=== PATIENT | male | born 1970 | race Caucasian/White ===

== ENCOUNTER 2017-12-14 12:38 | Emergency (ER) | payer BC, OTHER ==
[2017-12-14 12:47] VITALS: RESP 18
--- NOTE | 2017-12-14 14:20 | ED ---
Recheck HPI - General Chief Complaint: Recheck/Abnormal Lab/Rx Stated Complaint: High Blood Pressure Time Seen by Provider: 12/14/17 14:02 Source: patient Mode of arrival: ambulatory Limitations: no limitations - History of Present Illness Initial Comments: 47-year-old male patient presents to the emergency department today for evaluation of elevated blood pressure. Patient states that he was at a preemployment physical and his blood pressure was in the 160s over 120s. He states he has never had a history of high blood pressure. States he does not take any medications. States his last visit with his primary care physician was a little over a year ago and his blood pressure was normal at that time. He denies any symptoms with this. States he feels normal. Patient denies any recent rash, fever, chills, shortness breath, chest pain, abdominal pain, nausea , vomiting, diarrhea, constipation, back pain, numbness, tingling, dizziness, weakness, hematuria, dysuria, urinary urgency, urinary frequency, headache, visual changes, or any other complaints. - Related Data Home Medications Medication Instructions Recorded Confirmed Cider Vinegar [Apple Cider Vinegar] 450 mg PO DAILY 12/14/17 12/14/17 Multivitamins, Thera [Multivitamin 1 tab PO DAILY 12/14/17 12/14/17 (formulary)] Previous Rx's Medication Instructions Recorded amLODIPine BESYLATE [Norvasc] 5 mg PO DAILY #30 tablet 12/14/17 Allergies Allergy/AdvReac Type Severity Reaction Status Date / Time adhesive tape Allergy Rash/Hives Verified 12/14/17 13:54 Review of Systems ROS Statement: Those systems with pertinent positive or pertinent negative responses have been documented in the HPI. ROS Other: All systems not noted in ROS Statement are negative. Past Medical History Past Medical History: No Reported History History of Any Multi-Drug Resistant Organisms: None Reported Past Surgical History: No Surgical Hx Reported Additional Past Surgical History / Comment(s): Left elbow Past Psychological History: No Psychological Hx Reported Smoking Status: Never smoker Past Alcohol Use History: Occasional Past Drug Use History: None Reported General Exam Limitations: no limitations General appearance: alert, in no apparent distress, other (This is a well- developed, well-nourished adult male patient in no acute distress. Vital signs upon presentation are temperature 99.0F, pulse 91, respirations 18, blood pressure 179/117, pulse ox 97% on room air.) Eye exam: Present: normal appearance, PERRL, EOMI. Absent: scleral icterus, conjunctival injection, periorbital swelling ENT exam: Present: normal exam, normal oropharynx, mucous membranes moist Respiratory exam: Present: normal lung sounds bilaterally. Absent: respiratory distress, wheezes, rales, rhonchi, stridor Cardiovascular Exam: Present: regular rate, normal rhythm, normal heart sounds. Absent: systolic murmur, diastolic murmur, rubs, gallop, clicks Neurological exam: Present: alert, oriented X3, CN II-XII intact Psychiatric exam: Present: normal affect, normal mood Skin exam: Present: warm, dry, intact, normal color. Absent: rash Course Vital Signs 12/14/17 12/14/17 12/14/17 12:44 14:03 15:37 Temperature 99.0 F 98.3 F Pulse Rate 91 87 77 Respiratory 18 18 18 Rate Blood Pressure 179/117 151/108 146/106 O2 Sat by Pulse 97 98 96 Oximetry 12/14/17 15:52 Temperature Pulse Rate Respiratory Rate Blood Pressure 139/98 O2 Sat by Pulse Oximetry Medical Decision Making - Medical Decision Making 47-year-old male patient presented to the emergency department today for evaluation of elevated blood pressure. Physical examination was unremarkable. Did perform basic labs including urinalysis which were all normal. Chest x-ray was clear for no acute cardiopulmonary process. EKG showed normal sinus rhythm. We did give patient Norvasc. This did improve his blood pressure to 139/98 here in the department. We discussed use of his medications and possible side effects. Patient was given a prescription with one refill in the event he is unable to get into his primary care physician. He states he did make an appointment for January 09. He is instructed to return here immediately should develop any new, worsening, or concerning symptoms. He verbalizes understanding and agrees with this plan. - Lab Data Result diagrams: 12/14/17 14:35 12/14/17 14:35 Lab Results 12/14/17 12/14/17 12/14/17 Range/Units 14:35 14:35 14:36 WBC 9.7 (3.8-10.6) k/uL RBC 5.60 (4.30-5.90) m/uL Hgb 16.6 (13.0-17.5) gm/dL Hct 48.5 (39.0-53.0) % MCV 86.6 (80.0-100.0) fL MCH 29.7 (25.0-35.0) pg MCHC 34.3 (31.0-37.0) g/dL RDW 13.0 (11.5-15.5) % Plt Count 232 (150-450) k/uL Neutrophils % 61 % Lymphocytes % 30 % Monocytes % 5 % Eosinophils % 2 % Basophils % 0 % Neutrophils # 6.0 (1.3-7.7) k/uL Lymphocytes # 2.9 (1.0-4.8) k/uL Monocytes # 0.5 (0-1.0) k/uL Eosinophils # 0.1 (0-0.7) k/uL Basophils # 0.0 (0-0.2) k/uL Sodium 140 (137-145) mmol/L Potassium 4.3 (3.5-5.1) mmol/L Chloride 103 (98-107) mmol/L Carbon Dioxide 25 (22-30) mmol/L Anion Gap 12 mmol/L BUN 18 (9-20) mg/dL Creatinine 0.91 (0.66-1.25) mg/dL Est GFR (CKD-EPI)AfAm >90 (>60 ml/min/1.73 sqM) Est GFR (CKD-EPI)NonAf >90 (>60 ml/min/1.73 sqM) Glucose 92 (74-99) mg/dL Calcium 10.4 H (8.4-10.2) mg/dL Total Bilirubin 0.6 (0.2-1.3) mg/dL AST 32 (17-59) U/L ALT 63 (21-72) U/L Alkaline Phosphatase 87 (38-126) U/L Total Protein 8.2 (6.3-8.2) g/dL Albumin 4.7 (3.5-5.0) g/dL Urine Color Light Yellow Urine Appearance Clear (Clear) Urine pH 6.0 (5.0-8.0) Ur Specific [place] 1.013 (1.001-1.035) Urine Protein Negative (Negative) Urine Glucose (UA) Negative (Negative) Urine Ketones Negative (Negative) Urine Blood Negative (Negative) Urine Nitrite Negative (Negative) Urine Bilirubin Negative (Negative) Urine Urobilinogen <2.0 (<2.0) mg/dL Ur Leukocyte Esterase Negative (Negative) - EKG Data -: EKG Interpreted by Me EKG Comments: EKG obtained at 1433 shows normal sinus rhythm with a ventricular rate of 73, P return of a 182, QR christianity 90, QT 356, QTC 392. No evidence of ST elevation or depression. - Radiology Data Radiology results: report reviewed, image reviewed Two-view x-ray of the chest shows no focal airspace opacity, pleural effusion, or pneumothorax. The cardiac silhouette size is within normal limits. The osseous structures are intact. Impression by Dr. Colvin shows no acute cardiopulmonary process. Disposition Clinical Impression: High blood pressure Disposition: HOME SELF-CARE Condition: Good Instructions: DASH Eating Plan (ED), Hypertension (ED) Additional Instructions: Take medications as directed. Follow-up with Dr. Caballero as soon as possible. Return here immediately for any new, worsening, or concerning symptoms. Prescriptions: amLODIPine BESYLATE [Norvasc] 5 mg PO DAILY #30 tablet Referrals: Dai Caballero MD [Primary Care Provider] - 1-2 days Time of Disposition: 16:02
[2017-12-14] MEDS ORDERED: amLODIPine 5 MG TAB PO STA (14:21)
[2017-12-14 14:43] LABS: Basophils % (A) 0 %; Eosinophils # (A) 0.1 k/uL (0-0.7); Eosinophils % (A) 2 %; HCT 48.5 % (39.0-53.0); HGB 16.6 gm/dL (13.0-17.5); Lymphocytes # (A) 2.9 k/uL (1.0-4.8); Lymphocytes % (A) 30 %; MCH 29.7 pg (25.0-35.0); MCHC 34.3 g/dL (31.0-37.0); MCV 86.6 fL (80.0-100.0); Mean Platelet Volume 7.1; Monocytes # (A) 0.5 k/uL (0-1.0); Monocytes % (A) 5 %; Neutrophils % (A) 61 %; Platelet Count 232 k/uL (150-450); WBC 9.7 k/uL (3.8-10.6)
[2017-12-14 14:55] LABS: ALT 63 U/L (21-72); AST 32 U/L (17-59); Albumin 4.7 g/dL (3.5-5.0); Alkaline Phosphatase 87 U/L (38-126); Anion Gap 12 mmol/L; Blood Urea Nitrogen 18 mg/dL (9-20); Calcium 10.4 mg/dL (8.4-10.2); Carbon Dioxide 25 mmol/L (22-30); Chloride 103 mmol/L (98-107); Glucose 92 mg/dL (74-99); Potassium 4.3 mmol/L (3.5-5.1); Sodium 140 mmol/L (137-145); Total Bilirubin 0.6 mg/dL (0.2-1.3); Total Protein 8.2 g/dL (6.3-8.2)
[2017-12-14 14:55] LABS: Appearance,Urine Clear (Clear); Bilirubin,Urine Negative (Negative); Blood,Urine Negative (Negative); Color,Urine Light Yellow; Glucose,Urine (UA) Negative (Negative); Ketones,Urine Negative (Negative); Leukocyte Esterase,Urine Negative (Negative); Nitrite,Urine Negative (Negative); Protein,Urine Negative (Negative); Specific Gravity,Urine 1.013 (1.001-1.035); Urobilinogen,Urine <2.0 mg/dL (<2.0)
--- NOTE | 2017-12-14 15:05 | XR ---
EXAMINATION TYPE: XR chest 2V DATE OF EXAM: 12/14/2017 COMPARISON: 04/19/2011 HISTORY: Hypertension. TECHNIQUE: Frontal and lateral views of the chest are obtained. FINDINGS: There is no focal air space opacity, pleural effusion, or pneumothorax seen. The cardiac silhouette size is within normal limits. The osseous structures are intact. IMPRESSION: No acute cardiopulmonary process.
[2017-12-14 15:38] VITALS: TEMP 98.3
[2017-12-14] MEDS ORDERED: cloNIDine HCL 0.1 MG TAB PO STA (16:32)
[2017-12-14 17:15] VITALS: BP 158/98; PULSE 70
== END 2017-12-14 17:15 | disposition home or self-care (01) ==
LOC: EC 12:38
DX: I10 Essential (primary) hypertension (principal); Z79.899 Other long term (current) drug therapy; Z91.048 Other nonmedicinal substance allergy status
CPT/HCPCS: 36415; 71046; 80053; 81003; 85025; 93005; 99283